=== PATIENT | female | born 1990 | race Two or more races ===

== ENCOUNTER 2022-09-17 13:02 | Emergency (ER) | payer BC ==
[~2022-09-17] VITALS: Ht 182.9 cm; Wt 65.8 kg
--- NOTE | 2022-09-17 13:21 | NUR ---
established iv line 20 g left ac
--- NOTE | 2022-09-17 13:21 | NUR ---
[facility] while in the waiting room patient appeared to be very weak and shaky skin is pale also. patient said that the she is been vomiting since this morning. assisted to er room bed 3 , vital sign are stable . plan of care continues
--- NOTE | 2022-09-17 13:21 | NUR ---
blood sample obtained sent to lab
[2022-09-17] MEDS ORDERED: ONDANSETRON HCL/PF 4 MG/2 ML VIAL ONE ×2 (14:10→17:11)
[2022-09-17] MEDS ORDERED: IV NS 0.9% 1,000 ML IV ONE ×2 (14:30→15:00)
[2022-09-17] MEDS ORDERED: ONDANSETRON HCL/PF - ER 4 MG/2 ML VIAL IV ONE ×2 (14:30→17:30)
[2022-09-17 14:48] LABS: BASOPHILS % (AUTO) 0.1 % (0.0-2.0); EOSINOPHILS % (AUTO) 0.1 % (0.0-6.0); HEMATOCRIT 46 % (33-45); HEMOGLOBIN 15.6 g/dL (11.5-14.8); LYMPHOCYTES # (AUTO) 0.3 K/uL (0.8-4.8); LYMPHOCYTES % (AUTO) 3.4 % (20.0-44.0); MEAN CORPUSCULAR HGB CONC 34 g/dl (31.0-36.0); MEAN CORPUSCULAR VOLUME 90 fL (82-100); MONOCYTES # (AUTO) 0.3 K/uL (0.1-1.30); MONOCYTES % (AUTO) 4.1 % (2.0-12.0); NEUTROPHILS # (AUTO) 7.3 K/uL (1.8-8.9); NEUTROPHILS % (AUTO) 92.3 % (43.0-81.0); PLATELET COUNT (AUTO) 170 K/uL (150-450); WHITE BLOOD COUNT (AUTO) 7.9 K/uL (4.3-11.0)
[2022-09-17] MEDS ORDERED: FAMOTIDINE/PF INJ 20 MG/2 ML VIAL IV ONE ×2 (14:55→15:00)
[2022-09-17 15:06] LABS: ALBUMIN 4.5 g/dL (3.4-5.0); BILIRUBIN,DIRECT 0.2 mg/dL (0.0-0.2); BILIRUBIN,TOTAL 1.1 mg/dL (0.2-1.0); POTASSIUM 4.3 mmol/L (3.5-5.1); TOTAL PROTEIN, SERUM 8.3 g/dL (6.4-8.2)
--- NOTE | 2022-09-17 15:15 | NUR ---
URINE COLLECTED AND SENT TO Lab
--- NOTE | 2022-09-17 15:40 | NUR ---
sool collected and aent to lab. PT RECONNECTED TO MONITOR AND PULSE. LYING ONN BED COMFORTABLY AWAITING FOR ADDITIONAL DR ORDER
--- NOTE | 2022-09-17 15:41 | NUR ---
STOOL COLLECTED AND SENT TO LAB
[2022-09-17 15:42] LABS: COLOR,URINE YELLOW (YELLOW)
[2022-09-17 15:43] LABS: BILIRUBIN,URINE NEGATIVE (NEGATIVE); NITRITE, URINE NEGATIVE (NEGATIVE); PH,URINE 5.5 (5.0-8.0); PROTEIN,URINE NEGATIVE (NEGATIVE); UGLUCOSE NEGATIVE (NEGATIVE); UROBILINOGEN,URINE 0.2 EU/dL (0.2)
[2022-09-17 15:44] LABS: LEUKOCYTE ESTERASE ,URINE NEGATIVE (NEGATIVE)
[2022-09-17 16:17] LABS: BACTERIA,URINE None seen /HPF (None Seen); SQUAMOUS EPITHELIAL CELL,UR 0-2 /HPF (None Seen); WBC,URINE 0-2 /HPF (0-3)
[2022-09-17] MEDS ORDERED: AZIT500T PO (17:03)
[2022-09-17] MEDS ORDERED: ONDA4TAB11 PO (17:03)
--- NOTE | 2022-09-17 17:30 | NUR ---
IV removed. Catheter intact and site benign. Pressure and 4x4 applied to site. No bleeding noted.
[2022-09-17 17:57] VITALS: BP 121/81
--- NOTE | 2022-09-17 17:57 | NUR ---
Patient discharged to home in stable condition. Written and verbal after care instructions given. Patient verbalizes understanding of instruction.
== END 2022-09-17 18:02 | disposition home or self-care (01) ==
LOC: ER 13:07
DX: R19.7 Diarrhea, unspecified (principal); R10.84 Generalized abdominal pain; R11.2 Nausea with vomiting, unspecified; Z98.890 Other specified postprocedural states; Z60.2 Problems related to living alone; Z79.899 Other long term (current) drug therapy
CPT/HCPCS: 99284; 96374; 96361; 96375; 96376; 85025; 80048; 83690; 80076; 81001; 36415; J3490; J2405 ×4; J7030; A4223